=== PATIENT | female | born 1955 | race Caucasian/White ===

== ENCOUNTER 2018-01-14 17:57 | Emergency (ER) | payer SELFPAY ==
[~2018-01-14] VITALS: Ht 162.6 cm; Wt 90.7 kg
[2018-01-14] MEDS ORDERED: MORPHINE SULFATE 2 MG/ML SYR IV STA (18:42)
[2018-01-14] MEDS ORDERED: SODIUM CHLORIDE 0.9% 500ML 500 ML IV STA (18:42)
[2018-01-14] MEDS ORDERED: ONDANSETRON HCL INJ 2 MG/ML VIAL IV STA (18:42)
[2018-01-14 18:51] LABS: BASOPHILS # (AUTO) 0.1 (0.0-0.1); BASOPHILS % 0.6 % (0.0-1.0); EOSINOPHILS # (AUTO) 0.2 (0.0-0.4); EOSINOPHILS % 1.8 % (0.0-6.0); HEMATOCRIT 39.7 % (34.2-44.1); HEMOGLOBIN 13.3 g/dL (12.0-16.0); LYMPHOCYTES # (AUTO) 2.9 (1.0-3.2); LYMPHOCYTES % 26.8 % (18.0-39.1); MEAN CORPUSCULAR HEMOGLOBIN 27.8 pg (28-32); MEAN CORPUSCULAR HGB CONC 33.5 g/dL (31-35); MEAN CORPUSCULAR VOLUME 82.9 fL (81-99); MONOCYTES # (AUTO) 0.7 (0.2-0.8); MONOCYTES % 6.2 % (4.4-11.3); NEUTROPHILS % 64.2 % (38.7-80.0); PLATELET COUNT 461 x10e3/uL (140-360); RED BLOOD COUNT 4.79 x10e6/uL (3.6-5.1); RED CELL DISTRIBUTION WIDTH 14.7 % (11.7-14.4)
[2018-01-14 18:56] LABS: INR 1.01; PROTHROMBIN TIME 12.5 seconds (11.9-14.5)
[2018-01-14] MEDS ORDERED: DIATRIZOATE MEGL/DIATRIZOA SOD 30 ML BTL PO ONE (18:57)
[2018-01-14 19:03] LABS: ALANINE AMINOTRANSFERASE 6 IU/L (0-55); ALBUMIN 3.1 g/dL (3.5-5.0); ALBUMIN/GLOBULIN RATIO 0.7 (0.8-2.0); ALKALINE PHOSPHATASE 104 IU/L (40-150); AMYLASE 32 U/L (25-125); ANION GAP 14.7 mmol/L (8-16); BLOOD UREA NITROGEN 11 mg/dL (7-26); BUN/CREATININE RATIO 16 (6-25); CALCIUM 9.1 mg/dL (8.4-10.2); CARBON DIOXIDE 27 mmol/L (22-29); CHLORIDE 104 mmol/L (98-107); CREATINE KINASE 22 IU/L (29-168); EST GLOMERULAR FILTRATION RATE > 60 ML/MIN (60-); GLUCOSE 110 mg/dL (74-118); LIPASE 19 U/L (8-78); POTASSIUM 3.7 mmol/L (3.5-5.1); SODIUM 142 mmol/L (136-145)
[2018-01-14 19:27] LABS: BILIRUBIN,URINE NEGATIVE (NEGATIVE); CLARITY,URINE HAZY (CLEAR); COLOR,URINE YELLOW (YELLOW); KETONES,URINE NEGATIVE (NEGATIVE); LEUKOCYTE ESTERASE ,URINE TRACE (NEGATIVE); NITRITE,URINE NEGATIVE (NEGATIVE); PROTEIN,URINE DIPSTICK NEGATIVE (NEGATIVE); URINE UROBILINOGEN 1 mg/dL (0.2 - 1)
[2018-01-14 19:41] LABS: BACTERIA,URINE MANY /HPF; EPITHELIAL CELLS,URINE MODERATE /LPF; RBC,URINE 21-50 /HPF (0-5); WBC,URINE (MAN) 0-5 /HPF (0-5)
--- NOTE | 2018-01-14 20:33 | Diagnostic Imaging Report ---
EXAMINATION: CT of the abdomen and pelvis without contrast. TECHNIQUE: Helical CT images of the abdomen and pelvis were performed from the lung bases to the lesser trochanters without intravenous contrast and the oral administration of Gastrografin. Coronal and sagittal reformatted images were obtained. COMPARISON: None. CLINICAL HISTORY:Left lower quadrant pain DISCUSSION: ABDOMEN/PELVIS: LOWER THORAX:Unremarkable. HEPATOBILIARY: No focal hepatic lesions. No intra-or extrahepatic biliary ductal dilation. Cholecystectomy. SPLEEN: No splenomegaly. PANCREAS: No focal masses or ductal dilatation. ADRENALS: No adrenal nodules. KIDNEYS/URETERS: No hydronephrosis or stones. A right renal 7.4 cm and 4 cm exophytic cysts. No solid mass lesions. PELVIC ORGANS/BLADDER: Hysterectomy. Bladder unremarkable. PERITONEUM/RETROPERITONEUM: No soft tissue abscess. LYMPH NODES: No intra-abdominal, retroperitoneal, pelvic or inguinal lymphadenopathy. VESSELS: Limited evaluation. Vascular calcifications. GI TRACT: Wall thickening with inflammatory change of the sigmoid colon with adjacent diverticulosis. BONES AND SOFT TISSUE: No bony destructive lesions. Anterior abdominal wall hernia with transverse defect 4.5 cm containing transverse colon. No inflammatory change. IMPRESSION: Sigmoid diverticulitis. No abscess. Anterior abdominal hernia containing colon. No obstruction or inflammatory change. Signed by: Dr. Jose Alberto Haynes M.D. on 01/14/2018 8:29 PM
[2018-01-14 21:27] VITALS: BP 149/84
== END 2018-01-14 21:30 | disposition home or self-care (01) ==
LOC: ER 17:57
DX: R10.32 Left lower quadrant pain (principal); R11.0 Nausea; K57.32 Diverticulitis of large intestine without perforation or abscess without bleeding; D47.3 Essential (hemorrhagic) thrombocythemia
CPT/HCPCS: 36415; 74176; 80053; 81001; 82150; 82550; 82553; 83690; 84484; 85025; 85610; 85730; 93005; 99284; J2270; J2405; J7040

== ENCOUNTER 2018-01-18 08:33 | Emergency (ER) | payer SELFPAY ==
[~2018-01-18] VITALS: Ht 162.6 cm; Wt 90.7 kg
--- OUTSIDE RECORDS SUMMARY | 2018-01-18 08:35 | XMS REPORT ---
Author [facility] Address Unknown Phone Unavailable Care Team Providers Care Cashier Or Checker Stock Clerk Name Role Phone BLAS MCNEAL Unavailable Unavailable Problems This patient has no known problems. Allergies, Adverse Reactions, Alerts This patient has no known allergies or adverse reactions. Medications This patient has no known medications. Results Test Description Test Time Test Comments Text Results Atomic Results Result Comments CT ABDOMEN/PELVIS WO [place] [address] Patient Name: MICHAEL KATZ MR #: [id number] : 1955 Age/Sex: 63/F Req # : [id number] Adm Physician: Ordered by: LOY PURVIS LINE MECHANIC Report #: [id number] Location: ER Room/Bed: Procedure: [id number] CT/CT ABDOMEN/PELVIS WO Exam Date: Exam Time: REPORT STATUS: Signed EXAMINATION: CT of the abdomen and pelvis without contrast. TECHNIQUE: Helical CT images of the abdomen and pelvis were performed from the lung bases to the lesser trochanters without intravenous contrast and the oral administration of Gastrografin. Coronal and sagittal reformatted images were obtained. COMPARISON: None. CLINICAL HISTORY:Left lower quadrant pain DISCUSSION: ABDOMEN/ PELVIS: LOWER THORAX:Unremarkable. HEPATOBILIARY: No focal hepatic lesions. No intra-or extrahepatic biliary ductal dilation. Cholecystectomy. SPLEEN: No splenomegaly. PANCREAS: No focal masses or ductal dilatation. ADRENALS: No adrenal nodules. KIDNEYS/URETERS: No hydronephrosis or stones. A right renal 7.4 cm and 4 cm exophytic cysts. No solid mass lesions. PELVIC ORGANS/BLADDER: Hysterectomy. Bladder unremarkable. PERITONEUM/RETROPERITONEUM: No soft tissue abscess. LYMPH NODES: No intra-abdominal, retroperitoneal, pelvic or inguinal lymphadenopathy. VESSELS: Limited evaluation. Vascular calcifications. GI TRACT: Wall thickening with inflammatory change of the sigmoid colon with adjacent diverticulosis. BONES AND SOFT TISSUE: No bony destructive lesions. Anterior abdominal wall hernia with transverse defect 4.5 cm containing transverse colon. No inflammatory change. IMPRESSION: Sigmoid diverticulitis. No abscess. Anterior abdominal hernia containing colon. No obstruction or inflammatory change. Signed by: Dr. Kenneth Briceno M.D. on 01/14/2018 8:29 PM Dictated By: KENNETH BRICENO MD 28 Transcribed By: ELMO on 01/14/182028 COPY TO: LOY PURVIS NP
--- OUTSIDE RECORDS SUMMARY | 2018-01-18 08:35 | XMS REPORT | Continuity of Care Document ---
Author Author [facility] Organization [facility] Address [address] [place] [address] Phone Unavailable Care Team Providers Care Glazing Superintendent Name Role Phone NO, PCP PCP Unavailable Advance Directives Directive Response Recorded Date/Time Does the patient have an advance directive? No 01/14/18 6:56pm If yes, is advance directive on file with [facility]? No 01/14/18 6:56pm If not on file with [facility] will patient provide a copy? No 01/14/18 6:56pm Do you have a Directive to Physician? No 01/14/18 6:56pm Do you have a Medical Power of Electric Motor Tester Assembler? No 01/14/18 6:56pm Do you have an out of hospital Do Not Resuscitate Order? No 01/14/18 6:56pm Do you have any special needs we should be aware of? No 01/14/18 6:56pm Do you have a support person here with you today? Yes 01/14/18 6:56pm Did patient receive Notice of Privacy Practices? Yes 01/14/18 6:56pm Did patient receive patient rights and responsibilities? Yes 01/14/18 6:56pm Problems No problem information available. Medications No medication information available. Social History Smoking Status Start Date Stop Date Current every day smoker Hospital Discharge Instructions No hospital discharge instruction information available. Plan of Care Discharge Date 01/14/18 9:30pm Disposition HOME, SELF-CARE Condition at Discharge Stable Instructions/Education Provided Abdominal Pain - Adult Diverticulitis Forms Provided Work/School Excuse Prescriptions See Medication Section Referrals MAURICIO CHAMBERS MD Order Date: Call for an appointment Address: [address] [place], [place] [address], [place] [address] Additional Instructions/Education DC Instructions: Call for follow up appointment to see your medical provider or the referral listed. Take the medication as prescribed. Take Motrin 400mg to 600mg every 4-6 hours as needed for pain. As discussed at the bedside, drink fluids, rest and return to the ER for any fever, shortness of breath, chest pain, trouble handling your oral secreations, increased abdominal pain, fever, vomiting or any new concerns. Functional Status No functional status information available. Allergies, Adverse Reactions, Alerts Allergen Type Severity Reaction Status Last Updated Penicillin Allergy Unknown Active 01/14/18 Iodine Allergy Unknown Active 01/14/18 Diazepam Allergy Unknown Active 01/14/18 Aspirin Allergy Unknown Active 01/14/18 Tetracycline Allergy Unknown Active 01/14/18 ERYTHROMYCIN Allergy Unknown Active 01/14/18 Immunizations No immunization information available. Vital Signs Acute Vital Signs Vital Response Date/Time Pulse Pulse Rate (adult) 90 bpm (60 - 90) 01/14/2018 9:27pm Respiratory Rate 18 bpm (12 - 24) 01/14/2018 9:27pm Blood Pressure 149/84 mm Hg 01/14/2018 9:27pm Height 5 ft 4 in 01/14/2018 6:01pm Weight 200 lb 01/14/2018 6:01pm Body Mass Index 34.3 kg/m^2 01/14/2018 6:01pm Results Laboratory Results Test Name Result Units Flags Reference Collection Date/Time Result Date/ Time Comments White Blood Count 10.84 x10e3/uL H 4.8-10.8 01/14/2018 6:10pm 2017 6:54pm Red Blood Count 4.79 x10e6/uL 3.6-5.1 01/14/2018 6:10pm 01/14/2018 6: 54pm Hemoglobin 13.3 g/dL 12.0-16.0 01/14/2018 6:10pm 01/14/2018 6:54pm Hematocrit 39.7 % 34.2-44.1 01/14/2018 6:10pm 01/14/2018 6:54pm Mean Corpuscular Volume 82.9 fL 81-99 01/14/2018 6:10pm 01/14/2018 6: 54pm Mean Corpuscular Hemoglobin 27.8 pg L 28-32 01/14/2018 6:10pm 2017 6:54pm Mean Corpuscular Hemoglobin Concent 33.5 g/dL 31-35 01/14/2018 6:10pm 01/14/2018 6:54pm Red Cell Distribution Width 14.7 % H 11.7-14.4 01/14/2018 6:10pm 2017 6:54pm Platelet Count 461 x10e3/uL H 140-360 01/14/2018 6:10pm 01/14/2018 6: 54pm Neutrophils (%) (Auto) 64.2 % 38.7-80.0 01/14/2018 6:10pm 01/14/2018 6: 54pm Lymphocytes (%) (Auto) 26.8 % 18.0-39.1 01/14/2018 6:10pm 01/14/2018 6: 54pm Monocytes (%) (Auto) 6.2 % 4.4-11.3 01/14/2018 6:10pm 01/14/2018 6: 54pm Eosinophils (%) (Auto) 1.8 % 0.0-6.0 01/14/2018 6:10pm 01/14/2018 6: 54pm Basophils (%) (Auto) 0.6 % 0.0-1.0 01/14/2018 6:10pm 01/14/2018 6:54pm IM GRANULOCYTES % 0.4 % 0.0-1.0 01/14/2018 6:10pm 01/14/2018 6:54pm Neutrophils # (Auto) 7.0 H 2.1-6.9 01/14/2018 6:10pm 01/14/2018 6: 54pm Lymphocytes # (Auto) 2.9 1.0-3.2 01/14/2018 6:10pm 01/14/2018 6:54pm Monocytes # (Auto) 0.7 0.2-0.8 01/14/2018 6:10pm 01/14/2018 6:54pm Eosinophils # (Auto) 0.2 0.0-0.4 01/14/2018 6:10pm 01/14/2018 6:54pm Basophils # (Auto) 0.1 0.0-0.1 01/14/2018 6:10pm 01/14/2018 6:54pm Absolute Immature Granulocyte (auto 0.04 x10e3/uL 0-0.1 01/14/2018 6: 10pm 01/14/2018 6:54pm Prothrombin Time 12.5 seconds 11.9-14.5 01/14/2018 6:10pm 01/14/2018 7: 00pm Prothromb Time International Ratio 1.01 01/14/2018 6:10pm 2017 7:00pm Oral Anticoagulant Therapy INR Values: 1. Low Intensity Therapy 1.5 - 2.0 2. Moderate Intensity Therapy 2.0 - 3.0 3. High Intensity Therapy(1) 2.5 - 3.5 4. High Intensity Therapy(2) 3.0 - 4.0 5. Panic Value INR > 5.0 Activated Partial Thromboplast Time 35.0 seconds 23.8-35.5 01/14/2018 6: 10pm 01/14/2018 7:00pm Urine Color YELLOW YELLOW 01/14/2018 6:50pm 01/14/2018 7:29pm Urine Clarity HAZY CLEAR 01/14/2018 6:50pm 01/14/2018 7:29pm Urine Specific [place] 1.015 1.010-1.025 01/14/2018 6:50pm 2017 7:29pm Urine pH 6 5 - 7 01/14/2018 6:50pm 01/14/2018 7:29pm Urine Leukocyte Esterase TRACE H NEGATIVE 01/14/2018 6:50pm 2017 7:29pm Urine Nitrite NEGATIVE NEGATIVE 01/14/2018 6:50pm 01/14/2018 7:29pm Urine Protein NEGATIVE NEGATIVE 01/14/2018 6:50pm 01/14/2018 7:29pm Urine Glucose (UA) NEGATIVE NEGATIVE 01/14/2018 6:50pm 01/14/2018 7: 29pm Urine Ketones NEGATIVE NEGATIVE 01/14/2018 6:50pm 01/14/2018 7:29pm Urine Urobilinogen 1 mg/dL 0.2 - 1 01/14/2018 6:50pm 01/14/2018 7:29pm Urine Bilirubin NEGATIVE NEGATIVE 01/14/2018 6:50pm 01/14/2018 7: 29pm Urine Blood 1+ H NEGATIVE 01/14/2018 6:50pm 01/14/2018 7:29pm Urine WBC 0-5 /HPF 0-5 01/14/2018 6:50pm 01/14/2018 7:41pm Urine RBC 21-50 /HPF H 0-5 01/14/2018 6:50pm 01/14/2018 7:41pm Urine Bacteria MANY /HPF H NONE 01/14/2018 6:50pm 01/14/2018 7:41pm Urine Epithelial Cells MODERATE /LPF NONE 01/14/2018 6:50pm 01/14/2018 7:41pm Sodium Level 142 mmol/L 136-145 01/14/2018 6:10pm 01/14/2018 7:05pm Potassium Level 3.7 mmol/L 3.5-5.1 01/14/2018 6:10pm 01/14/2018 7:05pm Chloride Level 104 mmol/L 98-107 01/14/2018 6:10pm 01/14/2018 7:05pm Carbon Dioxide Level 27 mmol/L 22-29 01/14/2018 6:10pm 01/14/2018 7: 05pm Anion Gap 14.7 mmol/L 8-16 01/14/2018 6:10pm 01/14/2018 7:05pm Blood Urea Nitrogen 11 mg/dL 7-26 01/14/2018 6:10pm 01/14/2018 7:05pm Creatinine 0.70 mg/dL 0.57-1.11 01/14/2018 6:10pm 01/14/2018 7:05pm BUN/Creatinine Ratio 16 6-25 01/14/2018 6:10pm 01/14/2018 7:05pm Estimat Glomerular Filtration Rate > 60 ML/MIN 60- 01/14/2018 6:10pm 7:05pm Ranges were taken from the National Kidney Disease Education Program and the National Kidney Foundation literature. Reference ranges: 60 or greater: Normal 16-59 (for 3 consecutive months): Chronic kidney disease 15 or less: Kidney failure Glucose Level 110 mg/dL 74-118 01/14/2018 6:10pm 01/14/2018 7:05pm Calcium Level 9.1 mg/dL 8.4-10.2 01/14/2018 6:10pm 01/14/2018 7:05pm Total Bilirubin 0.3 mg/dL 0.2-1.2 01/14/2018 6:10pm 01/14/2018 7:05pm Aspartate Amino Transf (AST/SGOT) 8 IU/L 5-34 01/14/2018 6:10pm 2017 7:05pm Alanine Aminotransferase (ALT/SGPT) 6 IU/L 0-55 01/14/2018 6:10pm 01/14 7:05pm Total Protein 7.8 g/dL 6.5-8.1 01/14/2018 6:10pm 01/14/2018 7:05pm Albumin 3.1 g/dL L 3.5-5.0 01/14/2018 6:10pm 01/14/2018 7:05pm Globulin 4.7 g/dL H 2.3-3.5 01/14/2018 6:10pm 01/14/2018 7:05pm Albumin/Globulin Ratio 0.7 L 0.8-2.0 01/14/2018 6:10pm 01/14/2018 7: 05pm Alkaline Phosphatase 104 IU/L 40-150 01/14/2018 6:10pm 01/14/2018 7: 05pm Creatine Kinase 22 IU/L L 29-168 01/14/2018 6:10pm 01/14/2018 7:05pm Creatine Kinase MB 0.40 ng/mL 0-5.0 01/14/2018 6:10pm 01/14/2018 7: 10pm Troponin I 0.009 ng/mL 0-0.300 01/14/2018 6:10pm 01/14/2018 7:10pm Amylase Level 32 U/L 25-125 01/14/2018 6:10pm 01/14/2018 7:05pm Lipase 19 U/L 8-78 01/14/2018 6:10pm 01/14/2018 7:05pm Procedures Procedure Status Date Provider(s) CT of abdomen and pelvis without contrast Active 01/14/18 LOY PURVIS AMUSEMENT MACHINE MECHANIC Encounters Encounter Location Arrival/Admit Date Discharge/Depart Date Attending Provider Departed Emergency Room [facility] 01/14/18 5:57pm 9:30pm BLAS MCNEAL MD
[2018-01-18 09:32] LABS: BASOPHILS # (AUTO) 0.1 (0.0-0.1); BASOPHILS % 0.5 % (0.0-1.0); EOSINOPHILS # (AUTO) 0.3 (0.0-0.4); EOSINOPHILS % 2.4 % (0.0-6.0); HEMATOCRIT 36.9 % (34.2-44.1); LYMPHOCYTES # (AUTO) 2.7 (1.0-3.2); LYMPHOCYTES % 24.3 % (18.0-39.1); MEAN CORPUSCULAR HEMOGLOBIN 27.2 pg (28-32); MEAN CORPUSCULAR HGB CONC 32.5 g/dL (31-35); MEAN CORPUSCULAR VOLUME 83.7 fL (81-99); MONOCYTES # (AUTO) 0.9 (0.2-0.8); MONOCYTES % 7.9 % (4.4-11.3); NEUTROPHILS # (AUTO) 7.1 (2.1-6.9); NEUTROPHILS % 64.5 % (38.7-80.0); PLATELET COUNT 483 x10e3/uL (140-360); RED BLOOD COUNT 4.41 x10e6/uL (3.6-5.1); RED CELL DISTRIBUTION WIDTH 15.1 % (11.7-14.4)
[2018-01-18 09:38] LABS: BILIRUBIN,URINE NEGATIVE (NEGATIVE); CLARITY,URINE CLEAR (CLEAR); COLOR,URINE YELLOW (YELLOW); KETONES,URINE NEGATIVE (NEGATIVE); LEUKOCYTE ESTERASE ,URINE TRACE (NEGATIVE); NITRITE,URINE NEGATIVE (NEGATIVE); PROTEIN,URINE DIPSTICK NEGATIVE (NEGATIVE); URINE UROBILINOGEN 0.2 mg/dL (0.2 - 1)
[2018-01-18 09:48] LABS: ALANINE AMINOTRANSFERASE 6 IU/L (0-55); ALBUMIN 3.1 g/dL (3.5-5.0); ALBUMIN/GLOBULIN RATIO 0.8 (0.8-2.0); ALKALINE PHOSPHATASE 91 IU/L (40-150); BLOOD UREA NITROGEN 8 mg/dL (7-26); BUN/CREATININE RATIO 10 (6-25); CALCIUM 8.5 mg/dL (8.4-10.2); CARBON DIOXIDE 26 mmol/L (22-29); CHLORIDE 104 mmol/L (98-107); CREATININE, SERUM 0.78 mg/dL (0.57-1.11); EST GLOMERULAR FILTRATION RATE > 60 ML/MIN (60-); GLUCOSE 103 mg/dL (74-118); SODIUM 141 mmol/L (136-145)
[2018-01-18 09:54] LABS: BACTERIA,URINE FEW /HPF; EPITHELIAL CELLS,URINE FEW /LPF; RBC,URINE 0-5 /HPF (0-5); WBC,URINE (MAN) 0-5 /HPF (0-5)
[2018-01-18] MEDS ORDERED: LEVOFLOXACIN 750MG/D5W 150ML 150 ML IV STA (09:57)
[2018-01-18] MEDS ORDERED: SODIUM CHLORIDE 0.9% 1000ML 1,000 ML IV STA (09:57)
[2018-01-18] MEDS ORDERED: METRONIDAZOLE 500MG/NS 100ML 100 ML IV STA (09:57)
[2018-01-18] MEDS ORDERED: ONDANSETRON HCL INJ 2 MG/ML VIAL IV ONE ×2 (10:19→11:00)
[2018-01-18] MEDS ORDERED: HYDROMORPHONE 1MG/1ML INJ IV STA (10:19)
[2018-01-18] MEDS ORDERED: DIATRIZOATE MEGL/DIATRIZOA SOD 30 ML BTL PO ONE (10:34)
[2018-01-18] MEDS ORDERED: POTASSIUM CHLORIDE 20 MEQ TAB CR PO STA (10:40)
[2018-01-18] MEDS ORDERED: DIPHENHYDRAMINE HCL INJ 50 MG/ML VIAL IV ONE (10:45)
[2018-01-18] MEDS ORDERED: METHYLPREDNISOLONE SOD SUCC 125 MG/2ML VIAL IV ONE (10:45)
--- NOTE | 2018-01-18 12:15 | Diagnostic Imaging Report ---
EXAM: CT Abdomen and Pelvis WITHOUT contrast INDICATION: Recent diverticulitis. Concern for perforation. COMPARISON: 01/14/2018. TECHNIQUE: Abdomen and pelvis were scanned utilizing a multidetector helical scanner from the lung base to the pubic symphysis without administration of IV contrast. Absence of intravenous contrast decreases sensitivity for detection of focal lesions and vascular pathology. Coronal and sagittal reformations were obtained. Routine protocol was performed. IV CONTRAST: None. Withheld due to history of iodine allergy. ORAL CONTRAST: Gastrografin water mixture. RADIATION DOSE: Total DLP: 742.46 mGy*cm Estimated effective dose: (DLP x 0.015 x size factor) mSv COMPLICATIONS: None FINDINGS: LINES and TUBES: None. LOWER THORAX: Bibasilar dependent atelectasis. HEPATOBILIARY: No focal hepatic lesions. No biliary ductal dilation. GALLBLADDER: Surgically absent. SPLEEN: No splenomegaly. PANCREAS: No focal masses or ductal dilatation. ADRENALS: No adrenal nodules KIDNEYS/URETERS: No hydronephrosis. 7.6 cm cyst exophytic of the lateral interpolar region of the right kidney. 3.7 cm cyst exophytic of the posterior upper pole although although right kidney. No stones. GI TRACT: No bowel dilatation to suggest obstruction. Predominantly sigmoid diverticulosis. Redemonstration of sigmoid diverticulitis (about a large sigmoid diverticulum or focally dilated segment of sigmoid colon) which is not significantly changed compared to the prior examination. No abscess formation. PELVIC ORGANS/BLADDER: Status post hysterectomy. LYMPH NODES: No lymphadenopathy. VESSELS: Atherosclerotic calcifications of the abdominal aorta. 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 PERITONEUM / RETROPERITONEUM: No free air or fluid. BONES: Unremarkable. SOFT TISSUES: Large ventral abdominal hernia with an aperture of approximately 5.5 cm. Hernia sac contains a moderate volume of mesenteric fat, nondilated segments of transverse colon. IMPRESSION: 1. Redemonstration of acute sigmoid diverticulitis without evidence of perforation or abscess formation as per clinical query. 2. Large ventral abdominal hernia. No bowel obstruction. Signed by: Dr. Rayne Wilson M.D. on 01/18/2018 12:11 PM
== END 2018-01-18 13:12 | disposition home or self-care (01) ==
LOC: ER 08:33
DX: R10.31 Right lower quadrant pain (principal); K57.32 Diverticulitis of large intestine without perforation or abscess without bleeding; E87.6 Hypokalemia
CPT/HCPCS: 36415; 74176; 80053; 81001; 85025; 99284; J1170; J1200; J2405; J2930; J7030

== ENCOUNTER 2018-01-21 09:50 | Emergency (ER) ==
[~2018-01-21] VITALS: Ht 162.6 cm; Wt 90.7 kg
--- OUTSIDE RECORDS SUMMARY | 2018-01-21 09:53 | XMS REPORT | Continuity of Care Document ---
Author Author [facility] Organization [facility] Address [address] [place] [address] Phone Unavailable Care Team Providers Care Contracts Attorney Name Role Phone NO, PCP PCP Unavailable Advance Directives Directive Response Recorded Date/Time Does the patient have an advance directive? No 01/14/18 6:56pm If yes, is advance directive on file with [facility]? No 01/14/18 6:56pm If not on file with [facility] will patient provide a copy? No 01/14/18 6:56pm Do you have a Directive to Physician? No 01/18/18 10:13am Do you have a Medical Power of Painter Supervisor? No 01/18/18 10:13am Do you have an out of hospital Do Not Resuscitate Order? No 01/18/18 10:13am Do you have any special needs we should be aware of? No 01/18/18 10:13am Do you have a support person here with you today? Yes 01/18/18 10:13am Did patient receive Notice of Privacy Practices? Yes 01/18/18 10:13am Did patient receive patient rights and responsibilities? Yes 01/18/18 10:13am Problems No problem information available. Medications No medication information available. Social History Smoking Status Start Date Stop Date Current every day smoker Hospital Discharge Instructions No hospital discharge instruction information available. Plan of Care Discharge Date 01/18/18 1:12pm Disposition HOME, SELF-CARE Condition at Discharge Stable Instructions/Education Provided Abdominal Pain - Adult Forms Provided Work/School Excuse Prescriptions See Medication Section Additional Instructions/Education follow up with pcp take meds as directed Functional Status No functional status information available. [...] 01/14/2018 9:27pm Height 5 ft 4 in 01/18/2018 8:43am Weight 200 lb 01/18/2018 8:43am Body Mass Index 34.3 kg/m^2 01/18/2018 8:43am Results Laboratory Results Test Name Result Units Flags Reference Collection Date/Time Result Date/ Time Comments Prothrombin Time 12.5 seconds 11.9-14.5 01/14/2018 6:10pm [...] seconds 23.8-35.5 01/14/2018 6: 10pm 01/14/2018 7:00pm Creatine Kinase 22 IU/L L 29-168 01/14/2018 6:10pm 01/14/2018 7:05pm Creatine Kinase MB 0.40 ng/mL 0-5.0 01/14/2018 6:10pm 01/14/2018 7: 10pm Troponin I 0.009 ng/mL 0-0.300 01/14/2018 6:10pm 01/14/2018 7:10pm Amylase Level 32 U/L 25-125 01/14/2018 6:10pm 01/14/2018 7:05pm Lipase 19 U/L 8-78 01/14/2018 6:10pm 01/14/2018 7:05pm White Blood Count 10.95 x10e3/uL H 4.8-10.8 01/18/2018 8:47am 2017 9:38am Red Blood Count 4.41 x10e6/uL 3.6-5.1 01/18/2018 8:47am 01/18/2018 9: 38am Hemoglobin 12.0 g/dL 12.0-16.0 01/18/2018 8:47am 01/18/2018 9:38am Hematocrit 36.9 % 34.2-44.1 01/18/2018 8:47am 01/18/2018 9:38am Mean Corpuscular Volume 83.7 fL 81-99 01/18/2018 8:47am 01/18/2018 9: 38am Mean Corpuscular Hemoglobin 27.2 pg L 28-32 01/18/2018 8:47am 2017 9:38am Mean Corpuscular Hemoglobin Concent 32.5 g/dL 31-35 01/18/2018 8:47am 01/18/2018 9:38am Red Cell Distribution Width 15.1 % H 11.7-14.4 01/18/2018 8:47am 2017 9:38am Platelet Count 483 x10e3/uL H 140-360 01/18/2018 8:47am 01/18/2018 9: 38am Neutrophils (%) (Auto) 64.5 % 38.7-80.0 01/18/2018 8:47am 01/18/2018 9: 38am Lymphocytes (%) (Auto) 24.3 % 18.0-39.1 01/18/2018 8:47am 01/18/2018 9: 38am Monocytes (%) (Auto) 7.9 % 4.4-11.3 01/18/2018 8:47am 01/18/2018 9: 38am Eosinophils (%) (Auto) 2.4 % 0.0-6.0 01/18/2018 8:47am 01/18/2018 9: 38am Basophils (%) (Auto) 0.5 % 0.0-1.0 01/18/2018 8:47am 01/18/2018 9:38am IM GRANULOCYTES % 0.4 % 0.0-1.0 01/18/2018 8:47am 01/18/2018 9:38am Neutrophils # (Auto) 7.1 H 2.1-6.9 01/18/2018 8:47am 01/18/2018 9: 38am Lymphocytes # (Auto) 2.7 1.0-3.2 01/18/2018 8:47am 01/18/2018 9:38am Monocytes # (Auto) 0.9 H 0.2-0.8 01/18/2018 8:47am 01/18/2018 9:38am Eosinophils # (Auto) 0.3 0.0-0.4 01/18/2018 8:47am 01/18/2018 9:38am Basophils # (Auto) 0.1 0.0-0.1 01/18/2018 8:47am 01/18/2018 9:38am Absolute Immature Granulocyte (auto 0.04 x10e3/uL 0-0.1 01/18/2018 8: 47am 01/18/2018 9:38am Urine Color YELLOW YELLOW 01/18/2018 8:47am 01/18/2018 9:40am Urine Clarity CLEAR CLEAR 01/18/2018 8:47am 01/18/2018 9:40am Urine Specific [place] 1.010 1.010-1.025 01/18/2018 8:47am 2017 9:40am Urine pH 6 5 - 7 01/18/2018 8:47am 01/18/2018 9:40am Urine Leukocyte Esterase TRACE H NEGATIVE 01/18/2018 8:47am 2017 9:40am Urine Nitrite NEGATIVE NEGATIVE 01/18/2018 8:47am 01/18/2018 9:40am Urine Protein NEGATIVE NEGATIVE 01/18/2018 8:47am 01/18/2018 9:40am Urine Glucose (UA) NEGATIVE NEGATIVE 01/18/2018 8:47am 01/18/2018 9: 40am Urine Ketones NEGATIVE NEGATIVE 01/18/2018 8:47am 01/18/2018 9:40am Urine Urobilinogen 0.2 mg/dL 0.2 - 1 01/18/2018 8:47am 01/18/2018 9: 40am Urine Bilirubin NEGATIVE NEGATIVE 01/18/2018 8:47am 01/18/2018 9: 40am Urine Blood 1+ H NEGATIVE 01/18/2018 8:47am 01/18/2018 9:40am Urine WBC 0-5 /HPF 0-5 01/18/2018 8:47am 01/18/2018 9:54am Urine RBC 0-5 /HPF 0-5 01/18/2018 8:47am 01/18/2018 9:54am Urine Bacteria FEW /HPF NONE 01/18/2018 8:47am 01/18/2018 9:54am Urine Epithelial Cells FEW /LPF NONE 01/18/2018 8:47am 01/18/2018 9: 54am Sodium Level 141 mmol/L 136-145 01/18/2018 8:47am 01/18/2018 9:52am Potassium Level 3.0 mmol/L L 3.5-5.1 01/18/2018 8:47am 01/18/2018 9: 52am Chloride Level 104 mmol/L 98-107 01/18/2018 8:47am 01/18/2018 9:52am Carbon Dioxide Level 26 mmol/L 22-29 01/18/2018 8:47am 01/18/2018 9: 52am Anion Gap 14.0 mmol/L 8-16 01/18/2018 8:47am 01/18/2018 9:52am Blood Urea Nitrogen 8 mg/dL 7-26 01/18/2018 8:47am 01/18/2018 9:52am Creatinine 0.78 mg/dL 0.57-1.11 01/18/2018 8:47am 01/18/2018 9:52am BUN/Creatinine Ratio 10 6-25 01/18/2018 8:47am 01/18/2018 9:52am Estimat Glomerular Filtration Rate > 60 ML/MIN 60- 01/18/2018 8:47am 9:52am Ranges were taken from the National Kidney Disease Education Program and the National Kidney Foundation literature. Reference ranges: 60 or greater: Normal 16-59 (for 3 consecutive months): Chronic kidney disease 15 or less: Kidney failure Glucose Level 103 mg/dL 74-118 01/18/2018 8:47am 01/18/2018 9:52am Calcium Level 8.5 mg/dL 8.4-10.2 01/18/2018 8:47am 01/18/2018 9:52am Total Bilirubin < 0.3 mg/dL 0.2-1.2 01/18/2018 8:47am 01/18/2018 9: 52am Aspartate Amino Transf (AST/SGOT) 9 IU/L 5-34 01/18/2018 8:47am 2017 9:52am Alanine Aminotransferase (ALT/SGPT) 6 IU/L 0-55 01/18/2018 8:47am 01/18 9:52am Total Protein 7.2 g/dL 6.5-8.1 01/18/2018 8:47am 01/18/2018 9:52am Albumin 3.1 g/dL L 3.5-5.0 01/18/2018 8:47am 01/18/2018 9:52am Globulin 4.1 g/dL H 2.3-3.5 01/18/2018 8:47am 01/18/2018 9:52am Albumin/Globulin Ratio 0.8 0.8-2.0 01/18/2018 8:47am 01/18/2018 9: 52am Alkaline Phosphatase 91 IU/L 40-150 01/18/2018 8:47am 01/18/2018 9: 52am Procedures Procedure Status Date Provider(s) CT of abdomen and pelvis without contrast Active 01/14/18 LOY PURVIS BEAN PICKER MACHINE OPERATOR CT of abdomen and pelvis without contrast Active 01/18/18 BLAS MCNEAL MD Encounters Encounter Location Arrival/Admit Date Discharge/Depart Date Attending Provider Departed Emergency Room [facility] 01/18/18 8:33am 1:12pm BLAS MCNEAL MD Departed Emergency Room [facility] 01/14/18 5:57pm 9:30pm BLAS MCNEAL MD
== END 2018-01-21 10:13 | disposition short-term general hospital (02) ==
LOC: ER 09:50
DX: R10.31 Right lower quadrant pain (principal)

== ENCOUNTER 2018-01-21 22:18 | Inpatient (IN) | payer SELFPAY ==
[~2018-01-21] VITALS: Ht 160 cm; Wt 82.3 kg
--- OUTSIDE RECORDS SUMMARY | 2018-01-21 22:21 | XMS REPORT | Continuity of Care Document ---
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 No 01/14/18 6:56pm If yes, is advance directive on file with [facility]? No 01/14/18 6:56pm If not on file with [facility] will patient provide a copy? No 01/14/18 6:56pm Problems No problem information available. Medications No medication information available. Social History No social history information available. Hospital Discharge Instructions No hospital discharge instruction information available. Plan of Care Discharge Date 01/21/18 10:13am Disposition REQUEST WITHDRAWN FOR [facility] Condition at Discharge Stable Forms Provided Work/School Excuse Prescriptions See Medication Section Referrals NO,FAMILY Functional Status No functional status information available. Allergies, Adverse Reactions, Alerts Allergen Type Severity Reaction Status Last Updated Penicillin Allergy Unknown Active 01/14/18 Iodine Allergy Unknown Active 01/14/18 Diazepam Allergy Unknown Active 01/14/18 Aspirin Allergy Unknown Active 01/14/18 Tetracycline Allergy Unknown Active 01/14/18 CODIENE Allergy Unknown Active 01/21/18 ERYTHROMYCIN Allergy Unknown Active 01/14/18 Immunizations No immunization information available. Vital Signs Acute Vital Signs Vital Response Date/Time Pulse Pulse Rate (adult) 90 bpm (60 - 90) 01/14/2018 9:27pm Respiratory Rate 18 bpm (12 - 24) 01/14/2018 9:27pm Blood Pressure 149/84 mm Hg 01/14/2018 9:27pm Height 5 ft 4 in 01/21/2018 9:54am Weight 200 lb 01/21/2018 9:54am Body Mass Index 34.3 kg/m^2 01/21/2018 9:54am Results Laboratory Results Test Name Result Units [...] IM GRANULOCYTES % 0.4 % 0.0-1.0 01/18/2018 8:4701/18/2018 9:38am Neutrophils # (Auto) 7.1 H 2.1-6.9 [...] CLEAR 01/18/2018 8:47am 01/18/2018 9:40am Urine Specific [place] 1.010 1.010-1.025 01/18/2018 8:47am 2017 9:40am Urine [...] Potassium Level 3.0 mmol/L L 3.5-5.1 01/18/2018 8:4701/18/2018 9: 52am Chloride Level 104 mmol/L 98-107 01/18/2018 8:47am 01/18/2018 9:52am Carbon Dioxide Level 26 mmol/L 22-29 01/18/2018 8:47am 01/18/2018 9: 52am Anion Gap 14.0 mmol/L 8-16 01/18/2018 8:4701/18/2018 9:52am Blood Urea Nitrogen 8 mg/dL 7-01/18/2018 8:4701/18/2018 9:52am Creatinine 0.78 mg/dL 0.57-1.11 01/18/2018 8:4701/18/2018 9:52am BUN/Creatinine Ratio 10 6-01/18/2018 8:4701/18/2018 9:52am Estimat Glomerular Filtration Rate > 60 ML/MIN 60- 01/18/2018 8:47 9:52am Ranges were taken from the National Kidney Disease Education Program and the National Kid[employer] Foundation literature. Reference ranges: 60 or greater: Normal 16-59 (for 3 consecutive months): Chronic kidney disease 15 or less: Kidney failure Glucose Level 103 mg/dL 74-118 01/18/2018 8:4701/18/2018 9:52am Calcium Level 8.5 mg/dL 8.4-10.2 01/18/2018 8:4701/18/2018 9:52am Total Bilirubin < 0.3 mg/dL 0.2-1.2 01/18/2018 8:4701/18/2018 9: 52am Aspartate Amino Transf (AST/SGOT) 9 IU/L 5-34 01/18/2018 8:472017 9:52am Alanine Aminotransferase (ALT/SGPT) 6 IU/L 0-55 01/18/2018 8:4701/18 9:52am Total Protein 7.2 g/dL 6.5-8.1 01/18/2018 8:47am 01/18/2018 9:52am Albumin 3.1 g/dL L 3.5-5.0 01/18/2018 8:47am 01/18/2018 9:52am Globulin 4.1 g/dL H 2.3-3.5 01/18/2018 8:47am 01/18/2018 9:52am Albumin/Globulin Ratio 0.8 0.8-2.0 01/18/2018 8:47am 01/18/2018 9: 52am Alkaline Phosphatase 91 IU/L 40-150 01/18/2018 8:47am 01/18/2018 9: 52am Procedures Procedure Status Date Provider(s) CT of abdomen and pelvis without contrast Active 01/14/[address] of abdomen and pelvis without contrast Active 01/18/18 BLAS MCNEAL MD Encounters Encounter Location Arrival/Admit Date Discharge/Depart Date Attending Provider Departed Emergency Room [facility] [place] 01/21/18 9:50am 10:13am CONY SERNA MD Departed Emergency Room [facility] [place] 01/18/18 8:33am 1:12pm BLAS MCNEAL MD Departed Emergency Room [facility] [place] [facility] 01/14/18 5:57pm 9:30pm BLAS MCNEAL MD
[2018-01-21] MEDS ORDERED: PANTOPRAZOLE 40 MG 10ML VIAL IV STA (23:06)
[2018-01-21] MEDS ORDERED: ONDANSETRON HCL INJ 2 MG/ML VIAL IV STA (23:06)
[2018-01-21] MEDS ORDERED: SODIUM CHLORIDE 0.9% 1000ML 1,000 ML IV STA (23:06)
[2018-01-21 23:15] LABS: BASOPHILS # (AUTO) 0.1 (0.0-0.1); BASOPHILS % 0.6 % (0.0-1.0); EOSINOPHILS # (AUTO) 0.2 (0.0-0.4); EOSINOPHILS % 1.7 % (0.0-6.0); HEMATOCRIT 38.2 % (34.2-44.1); HEMOGLOBIN 12.6 g/dL (12.0-16.0); LYMPHOCYTES # (AUTO) 3.6 (1.0-3.2); LYMPHOCYTES % 24.7 % (18.0-39.1); MEAN CORPUSCULAR HEMOGLOBIN 27.3 pg (28-32); MEAN CORPUSCULAR VOLUME 82.9 fL (81-99); MONOCYTES % 6.9 % (4.4-11.3); NEUTROPHILS # (AUTO) 9.6 (2.1-6.9); NEUTROPHILS % 65.8 % (38.7-80.0); PLATELET COUNT 444 x10e3/uL (140-360); RED BLOOD COUNT 4.61 x10e6/uL (3.6-5.1); RED CELL DISTRIBUTION WIDTH 15.6 % (11.7-14.4)
[2018-01-21] MEDS ORDERED: DICYCLOMINE HCL 20 MG/2 ML VIAL IM ONE (23:15)
[2018-01-21 23:26] LABS: BLOOD UREA NITROGEN 15 mg/dL (7-26); BUN/CREATININE RATIO 20 (6-25); CARBON DIOXIDE 27 mmol/L (22-29); CHLORIDE 104 mmol/L (98-107); CREATININE, SERUM 0.75 mg/dL (0.57-1.11); EST GLOMERULAR FILTRATION RATE > 60 ML/MIN (60-); GLUCOSE 113 mg/dL (74-118); SODIUM 140 mmol/L (136-145)
[2018-01-22] VITALS (10 sets, daily range): BP systolic 105–163; BP diastolic 59–97
[2018-01-22] MEDS ORDERED: HYDROMORPHONE 1MG/1ML INJ IV STA (00:09)
[2018-01-22] MEDS ORDERED: PROMETHAZINE HCL (IM) 25 MG/ML VIAL IV PRN (00:30)
[2018-01-22] MEDS: CEFTRIAXONE SOD 1 GM VIAL IV SCH ×2 (00:39→12:35)
[2018-01-22] MEDS: METRONIDAZOLE 500MG/NS 100ML 100 ML IV SCH ×4 (00:39→17:51)
[2018-01-22] MEDS ORDERED: POTASSIUM CHLORIDE 20MEQ/15ML UDC PO STA (00:49)
[2018-01-22] MEDS ORDERED: PROMETHAZINE 12.5MG/ NACL 0.9% 50 ML ONE (00:58)
[2018-01-22] MEDS: D5.45%NS/KCL 20MEQ 1,000 ML IV SCH ×4 (03:25→23:05)
[2018-01-22] MEDS: HYDROMORPHONE 1MG/1ML INJ IV PRN ×5 (05:26→23:06)
[2018-01-22] MEDS ORDERED: HYDRALAZINE HCL 20 MG/ML VIAL IV PRN (08:45)
[2018-01-22] MEDS ORDERED: PANTOPRAZOLE 40 MG 10ML VIAL IV SCH (09:00)
[2018-01-22] MEDS: FAMOTIDINE 20 MG TAB PO SCH ×2 (09:11→16:15)
--- NOTE | 2018-01-22 19:52 | History and Physical ---
DATE OF : 1955 PCP: None. CHIEF COMPLAINT: Abdominal pain. HISTORY OF PRESENT ILLNESS: Ms. Huddleston is a 63-year-old lady, who comes in complaining of abdominal pain that has been going on for almost 6 months in the left lower quadrant initially. She has had some diarrhea. She has had some bright red blood per rectum in the last couple of days. The pain was finally severe enough that the patient went to the emergency room about a week ago. Here, CT scan showed acute sigmoid diverticulitis and a ventral hernia. She was started on Cipro and Flagyl, which she has been taking for the past week. She comes in now still with left lower quadrant abdominal pain, which has moved over to the right side as well and some discomfort in the lower back. She is also having some bright red blood per rectum in the last couple of days as well. REVIEW OF SYSTEMS: She denies fever, chills or weight loss. She denies sinus congestion or sore throat. She denies chest pain or palpitations. She denies shortness breath, wheezing. She does have a chronic cough. She is a smoker. She complains of abdominal pain as noted with some bright red blood per rectum, hematochezia. She denies nausea, vomiting or hematemesis. She denies dysuria or flank pain. She denies rash or pruritus. She denies joint pain or swelling. She denies headache, vertigo or loss of consciousness. She denies depression, agitation, homicidal or suicidal ideation. PAST MEDICAL HISTORY: Negative. The patient takes no chronic medication. Has not been to a doctor in years until just recently with this abdominal pain. She does have a distant history of cholecystectomy and hysterectomy. She takes no chronic medication. SHE HAS A STATED ALLERGY TO TETRACYCLINE, ASPIRIN, VALIUM, IODINE, PENICILLINS, CODEINE, ERYTHROMYCIN. FAMILY HISTORY: Also unremarkable, most of her family members of old age. SOCIAL HISTORY: The patient is . Citizen Of [place] is her primary language. She is a current every day smoker. She does not drink or use illegal drugs and she is generally independently functioning. PHYSICAL EXAM PSYCHIATRIC: She is alert and oriented times 3 with normal mood and affect. CONSTITUTIONAL: She has a normal body habitus, is in no acute distress. VITAL SIGNS: Blood pressure 139/83. Pulse 75 and regular. Respiratory rate 18. O2 sat 95% on room air. Temperature 98.3. HEENT: Head is atraumatic. Her eyes are anicteric with clear conjunctivae. Ears and nares are without erythema or discharge. Oropharynx is clear. NECK: Supple with no mass or thyromegaly. LYMPHATIC SYSTEM: She has no palpable cervical axillary or inguinal adenopathy. CARDIOVASCULAR: Her heart has a regular rate and rhythm without murmur or extra sounds. She has no carotid bruit. She has no peripheral edema. She has palpable dorsal pedal pulses. RESPIRATORY: Lungs reveal diminished breath sounds with some scattered rhonchi and expiratory wheezing. She has normal respiratory effort. GASTROINTESTINAL: Her abdomen is soft without organomegaly or masses. She has some moderate tenderness in the lower abdomen greater in the left lower quadrant, but also in the right lower quadrant without rebound or guarding. She has normal bowel sounds present. CUTANEOUS: Her skin is warm and dry to touch. No rash or skin breakdown. MUSCULOSKELETAL: Her joints are normal alignment without erythema or swelling. She has no calf tenderness. NEUROLOGIC: Exam is nonfocal with intact cranial nerves and no motor or sensory deficits. DIAGNOSTIC STUDIES: CT scan done a week ago showed acute sigmoid diverticulitis and a ventral hernia. It was actually done on January 18, 2018, so 4 or 5 days ago. Her chemistry shows a potassium of 3.0. The rest of her electrolytes are normal. CO2 is 27. Creatinine 0.75. BUN 15. Glucose 113. Calcium 8.0. Magnesium 1.6. Her CBC shows a white count of 14.5, which is slightly elevated, but has a normal differential. Hemoglobin 12.6, hematocrit 38.2, and platelet count 444,000. IMPRESSIONS AND PLAN 1. Acute sigmoid diverticulitis. The patient has been started on intravenous Rocephin and Flagyl since she was on Cipro before. We will continue her on clear liquids and will do serial abdominal exams. Will advance diet when the patient is pain free. 2. For prophylaxis, the patient will have sequential compression devices placed for deep venous thrombosis prophylaxis and Pepcid for gastrointestinal prophylaxis. Job#: [id number] CQ
[2018-01-23 00:16] VITALS: BP 141/65
[2018-01-23] MEDS: METRONIDAZOLE 500MG/NS 100ML 100 ML IV SCH ×4 (00:30→16:27)
[2018-01-23] MEDS: CEFTRIAXONE SOD 1 GM VIAL IV SCH ×2 (00:31→12:11)
[2018-01-23] MEDS: HYDROMORPHONE 1MG/1ML INJ IV PRN ×4 (03:54→21:14)
[2018-01-23 04:35] VITALS: BP 166/72
[2018-01-23 04:39] VITALS: BP 144/63
[2018-01-23 06:09] LABS: BASOPHILS # (AUTO) 0.1 (0.0-0.1); BASOPHILS % 0.7 % (0.0-1.0); EOSINOPHILS # (AUTO) 0.2 (0.0-0.4); EOSINOPHILS % 2.2 % (0.0-6.0); HEMATOCRIT 31.3 % (34.2-44.1); HEMOGLOBIN 10.1 g/dL (12.0-16.0); LYMPHOCYTES # (AUTO) 2.1 (1.0-3.2); LYMPHOCYTES % 23.7 % (18.0-39.1); MEAN CORPUSCULAR HEMOGLOBIN 27.2 pg (28-32); MEAN CORPUSCULAR HGB CONC 32.3 g/dL (31-35); MEAN CORPUSCULAR VOLUME 84.4 fL (81-99); MONOCYTES # (AUTO) 0.7 (0.2-0.8); MONOCYTES % 7.6 % (4.4-11.3); NEUTROPHILS # (AUTO) 5.9 (2.1-6.9); NEUTROPHILS % 65.5 % (38.7-80.0); PLATELET COUNT 340 x10e3/uL (140-360); RED BLOOD COUNT 3.71 x10e6/uL (3.6-5.1); RED CELL DISTRIBUTION WIDTH 16.2 % (11.7-14.4)
[2018-01-23 06:26] LABS: ANION GAP 6.6 mmol/L (8-16); BLOOD UREA NITROGEN 8 mg/dL (7-26); BUN/CREATININE RATIO 12 (6-25); CALCIUM 7.5 mg/dL (8.4-10.2); CARBON DIOXIDE 29 mmol/L (22-29); CHLORIDE 105 mmol/L (98-107); CREATININE, SERUM 0.66 mg/dL (0.57-1.11); EST GLOMERULAR FILTRATION RATE > 60 ML/MIN (60-); GLUCOSE 105 mg/dL (74-118); POTASSIUM 3.6 mmol/L (3.5-5.1); SODIUM 137 mmol/L (136-145)
[2018-01-23 06:37] LABS: ALANINE AMINOTRANSFERASE 6 IU/L (0-55); ALBUMIN 2.4 g/dL (3.5-5.0); ALKALINE PHOSPHATASE 56 IU/L (40-150); BILIRUBIN,DIRECT 0.1 mg/dL (0.0-0.5); CHOL/HDL RATIO 3.4 (3.0-3.6); CHOLESTEROL 127 MD/DL (0-199); HDL CHOLESTEROL 37 MG/DL (40-60); LDL CHOLESTEROL 74 MG/DL (60-130); TRIGLYCERIDES 80 MG/DL (0-149)
[2018-01-23 06:58] LABS: FREE T4 (FREE THYROXINE) 1.17 ng/dL (0.9-1.8); THYROID STIMULATING HORMONE 2.176 uIU/mL (0.350-4.940)
[2018-01-23 07:46] VITALS: BP 151/81
[2018-01-23] MEDS: FAMOTIDINE 20 MG TAB PO SCH ×2 (08:38→16:27)
[2018-01-23] MEDS: D5.45%NS/KCL 20MEQ 1,000 ML IV SCH ×2 (08:39→16:27)
[2018-01-23] MEDS: ONDANSETRON HCL INJ 2 MG/ML VIAL IV PRN ×2 (09:46→15:44)
[2018-01-23] MEDS ORDERED: ACETAMINOPHEN 325 MG TAB PO PRN (10:15)
[2018-01-23] MEDS ORDERED: ACETAMINOPHEN 325 MG SUPP PR PRN (10:15)
--- NOTE | 2018-01-23 11:59 | Diagnostic Imaging Report ---
PROCEDURE:X-RAY ABDOMEN - KUB COMPARISON:CT dated 01/18/18 INDICATIONS:DIVERTICULITIS FINDINGS: Limited by body habitus and single view. There is a non-obstructed bowel-gas pattern. No signs of pneumoperitoneum. There are no acute osseous abnormalities. CONCLUSION: Nonobstructive bowel gas pattern. Dictated by: Jose Bernstein M.D. on 01/23/2018 at 11:59 Electronically approved by: Jose Bernstein M.D. on 01/23/2018 at 11:59
[2018-01-23 16:00] VITALS: BP 190/77
[2018-01-23] MEDS: CALCIUM CARBONATE 500 MG CHEWABLE TABS PO SCH (16:27)
[2018-01-23 20:00] VITALS: BP 173/81
[2018-01-24] VITALS: BP 152/65
[2018-01-24] MEDS: METRONIDAZOLE 500MG/NS 100ML 100 ML IV SCH ×4 (00:58→18:49)
[2018-01-24] MEDS: D5.45%NS/KCL 20MEQ 1,000 ML IV SCH ×2 (01:09→08:43)
[2018-01-24] MEDS: CEFTRIAXONE SOD 1 GM VIAL IV SCH ×2 (01:09→12:32)
[2018-01-24] MEDS: HYDROMORPHONE 1MG/1ML INJ IV PRN ×6 (01:45→23:00)
[2018-01-24 04:00] VITALS: BP 145/67
--- NOTE | 2018-01-24 06:33 | Diagnostic Imaging Report ---
ABDOMEN-1VIEW (KUB) Clinical history: Diverticulitis Technique: AP view abdomen Comparison: 01/23/2018 Findings: Cholecystectomy clips. No differentially dilated loops of small or large bowel. Limited supine portable evaluation for free air with exclusion of the hemidiaphragms. Impression: Nonobstructive bowel gas pattern. Signed by: Dr Omaira Leigh MD on 01/24/2018 6:29 AM
[2018-01-24 08:00] VITALS: BP 170/81
[2018-01-24] MEDS: ONDANSETRON HCL INJ 2 MG/ML VIAL IV PRN ×2 (08:00→12:14)
[2018-01-24] MEDS: CALCIUM CARBONATE 500 MG CHEWABLE TABS PO SCH ×2 (08:43→18:49)
[2018-01-24] MEDS: FAMOTIDINE 20 MG TAB PO SCH ×2 (08:43→18:49)
[2018-01-24 09:41] LABS: BASOPHILS % 0.4 % (0.0-1.0); EOSINOPHILS # (AUTO) 0.2 (0.0-0.4); EOSINOPHILS % 1.9 % (0.0-6.0); HEMATOCRIT 30.8 % (34.2-44.1); HEMOGLOBIN 10.2 g/dL (12.0-16.0); LYMPHOCYTES # (AUTO) 1.6 (1.0-3.2); MEAN CORPUSCULAR HEMOGLOBIN 27.6 pg (28-32); MEAN CORPUSCULAR HGB CONC 33.1 g/dL (31-35); MEAN CORPUSCULAR VOLUME 83.5 fL (81-99); MONOCYTES # (AUTO) 0.7 (0.2-0.8); MONOCYTES % 8.1 % (4.4-11.3); NEUTROPHILS # (AUTO) 6.3 (2.1-6.9); NEUTROPHILS % 71.3 % (38.7-80.0); PLATELET COUNT 312 x10e3/uL (140-360); RED BLOOD COUNT 3.69 x10e6/uL (3.6-5.1); RED CELL DISTRIBUTION WIDTH 16.4 % (11.7-14.4)
[2018-01-24 10:01] LABS: ANION GAP 6.4 mmol/L (8-16); BLOOD UREA NITROGEN < 5 mg/dL (7-26); CARBON DIOXIDE 29 mmol/L (22-29); CHLORIDE 105 mmol/L (98-107); CREATININE, SERUM 0.65 mg/dL (0.57-1.11); EST GLOMERULAR FILTRATION RATE > 60 ML/MIN (60-); GLUCOSE 126 mg/dL (74-118); MAGNESIUM 1.4 MG/DL (1.3-2.1); POTASSIUM 3.4 mmol/L (3.5-5.1); SODIUM 137 mmol/L (136-145)
[2018-01-24 10:07] LABS: BUN/CREATININE RATIO 8 (6-25)
[2018-01-24] MEDS: NIFEDIPINE CR 30 MG TAB PO SCH (11:04)
[2018-01-24 12:00] VITALS: BP 168/71
[2018-01-24 16:00] VITALS: BP 160/72
[2018-01-24 20:00] VITALS: BP 154/70
[2018-01-25] VITALS: BP 170/81
[2018-01-25] MEDS: D5.45%NS/KCL 20MEQ 1,000 ML IV SCH
[2018-01-25 04:00] VITALS: BP 142/66
[2018-01-25] MEDS: HYDROMORPHONE 1MG/1ML INJ IV PRN ×2 (05:04→09:48)
[2018-01-25] MEDS: METRONIDAZOLE 500MG/NS 100ML 100 ML IV SCH ×4 (05:46→17:13)
--- NOTE | 2018-01-25 06:54 | Diagnostic Imaging Report ---
ABDOMEN-1VIEW (KUB) Clinical history: Diverticulitis Technique: AP view abdomen Comparison: Previous day Findings: Hemidiaphragms are excluded. Cholecystectomy clips. No differentially dilated loops of small or large bowel. Limited supine portable evaluation for free air with exclusion of the hemidiaphragms. Impression: Nonobstructive bowel gas pattern. Signed by: Dr Omaira Leigh MD on 01/25/2018 6:50 AM
[2018-01-25 08:57] LABS: BASOPHILS # (AUTO) 0.1 (0.0-0.1); BASOPHILS % 0.5 % (0.0-1.0); EOSINOPHILS # (AUTO) 0.2 (0.0-0.4); EOSINOPHILS % 1.9 % (0.0-6.0); HEMATOCRIT 31.4 % (34.2-44.1); HEMOGLOBIN 10.2 g/dL (12.0-16.0); MEAN CORPUSCULAR HEMOGLOBIN 27.3 pg (28-32); MEAN CORPUSCULAR HGB CONC 32.5 g/dL (31-35); MONOCYTES # (AUTO) 0.8 (0.2-0.8); MONOCYTES % 7.7 % (4.4-11.3); NEUTROPHILS # (AUTO) 7.1 (2.1-6.9); NEUTROPHILS % 69.5 % (38.7-80.0); PLATELET COUNT 342 x10e3/uL (140-360); RED BLOOD COUNT 3.74 x10e6/uL (3.6-5.1); RED CELL DISTRIBUTION WIDTH 16.5 % (11.7-14.4)
[2018-01-25] MEDS: FAMOTIDINE 20 MG TAB PO SCH ×2 (09:14→17:13)
[2018-01-25] MEDS: CALCIUM CARBONATE 500 MG CHEWABLE TABS PO SCH ×2 (09:14→17:13)
[2018-01-25] MEDS: NIFEDIPINE CR 30 MG TAB PO SCH (09:14)
[2018-01-25 09:26] LABS: ANION GAP 9.3 mmol/L (8-16); BLOOD UREA NITROGEN < 5 mg/dL (7-26); CALCIUM 8.3 mg/dL (8.4-10.2); CARBON DIOXIDE 30 mmol/L (22-29); CHLORIDE 106 mmol/L (98-107); CREATININE, SERUM 0.61 mg/dL (0.57-1.11); EST GLOMERULAR FILTRATION RATE > 60 ML/MIN (60-); GLUCOSE 100 mg/dL (74-118); POTASSIUM 3.3 mmol/L (3.5-5.1); SODIUM 142 mmol/L (136-145)
[2018-01-25 09:42] LABS: BUN/CREATININE RATIO 8 (6-25)
[2018-01-25] MEDS: ONDANSETRON HCL INJ 2 MG/ML VIAL IV PRN ×2 (09:48→17:14)
[2018-01-25] MEDS ORDERED: TRAMADOL HCL 50 MG TAB PO PRN (10:30)
[2018-01-25] MEDS ORDERED: POTASSIUM CHLORIDE 20 MEQ TAB CR PO SCH (10:34)
[2018-01-25 10:42] VITALS: BP 143/63
[2018-01-25] MEDS ORDERED: LORAZEPAM INJ 2 MG/ML VIAL IV PRN (10:45)
[2018-01-25] MEDS ORDERED: DIPHENHYDRAMINE HCL 25 MG CAP PO PRN (10:45)
[2018-01-25] MEDS: CEFTRIAXONE SOD 1 GM VIAL IV SCH ×2 (12:06)
[2018-01-25 14:29] LABS: MAGNESIUM 1.6 MG/DL (1.3-2.1)
[2018-01-25 15:59] VITALS: BP 130/66
[2018-01-25 20:00] VITALS: BP 142/62
[2018-01-26] VITALS (7 sets, daily range): BP systolic 111–171; BP diastolic 58–86
[2018-01-26] MEDS: CEFTRIAXONE SOD 1 GM VIAL IV SCH ×2 (00:15→11:58)
[2018-01-26] MEDS ORDERED: SODIUM CHLORIDE 0.9% 250ML 250 ML ONE (00:56)
[2018-01-26] MEDS: METRONIDAZOLE 500MG/NS 100ML 100 ML IV SCH ×4 (00:59→17:13)
[2018-01-26] MEDS ORDERED: POTASSIUM CHLORIDE 20 MEQ TAB CR PO STA (01:13)
[2018-01-26] MEDS: HYDROMORPHONE 1MG/1ML INJ IV PRN ×2 (01:15→09:03)
[2018-01-26] MEDS ORDERED: ZOLPIDEM TARTRATE 5 MG TAB PO PRN (01:45)
[2018-01-26 06:26] LABS: BASOPHILS # (AUTO) 0.1 (0.0-0.1); BASOPHILS % 0.5 % (0.0-1.0); EOSINOPHILS # (AUTO) 0.3 (0.0-0.4); EOSINOPHILS % 2.4 % (0.0-6.0); HEMATOCRIT 33.2 % (34.2-44.1); HEMOGLOBIN 10.9 g/dL (12.0-16.0); LYMPHOCYTES # (AUTO) 2.6 (1.0-3.2); LYMPHOCYTES % 24.1 % (18.0-39.1); MEAN CORPUSCULAR HEMOGLOBIN 27.3 pg (28-32); MEAN CORPUSCULAR HGB CONC 32.8 g/dL (31-35); MEAN CORPUSCULAR VOLUME 83.2 fL (81-99); MONOCYTES # (AUTO) 0.8 (0.2-0.8); MONOCYTES % 7.9 % (4.4-11.3); NEUTROPHILS # (AUTO) 6.9 (2.1-6.9); NEUTROPHILS % 64.8 % (38.7-80.0); PLATELET COUNT 353 x10e3/uL (140-360); RED BLOOD COUNT 3.99 x10e6/uL (3.6-5.1); RED CELL DISTRIBUTION WIDTH 16.4 % (11.7-14.4)
--- NOTE | 2018-01-26 06:26 | Diagnostic Imaging Report ---
ABDOMEN-1VIEW (KUB) Clinical history: Diverticulitis Technique: AP view abdomen Comparison: Previous day Findings: Left hemidiaphragm is excluded. Cholecystectomy clips. No differentially dilated loops of small or large bowel. Limited supine portable evaluation for free air. Impression: Nonobstructive bowel gas pattern. Signed by: Dr Omaira Leigh MD on 01/26/2018 6:23 AM
[2018-01-26 07:00] LABS: ANION GAP 10.7 mmol/L (8-16); BLOOD UREA NITROGEN < 5 mg/dL (7-26); CALCIUM 8.5 mg/dL (8.4-10.2); CARBON DIOXIDE 28 mmol/L (22-29); CHLORIDE 104 mmol/L (98-107); CREATININE, SERUM 0.59 mg/dL (0.57-1.11); EST GLOMERULAR FILTRATION RATE > 60 ML/MIN (60-); GLUCOSE 85 mg/dL (74-118); POTASSIUM 3.7 mmol/L (3.5-5.1); SODIUM 139 mmol/L (136-145)
[2018-01-26 07:06] LABS: BUN/CREATININE RATIO 8 (6-25)
[2018-01-26] MEDS: FAMOTIDINE 20 MG TAB PO SCH ×2 (07:30→16:30)
[2018-01-26] MEDS: CALCIUM CARBONATE 500 MG CHEWABLE TABS PO SCH ×2 (08:00→17:00)
[2018-01-26] MEDS: ONDANSETRON HCL INJ 2 MG/ML VIAL IV PRN (08:19)
[2018-01-26] MEDS: NIFEDIPINE CR 30 MG TAB PO SCH (09:00)
[2018-01-26] MEDS: HYDROCODONE/APAP 10MG-325MG TAB PO PRN ×2 (14:35→18:06)
[2018-01-27] MEDS: METRONIDAZOLE 500MG/NS 100ML 100 ML IV SCH ×3 (00:33→12:00)
[2018-01-27] MEDS: CEFTRIAXONE SOD 1 GM VIAL IV SCH ×2 (00:33→12:15)
[2018-01-27] MEDS: HYDROCODONE/APAP 10MG-325MG TAB PO PRN ×3 (00:34→12:44)
[2018-01-27 01:09] VITALS: BP 143/64
[2018-01-27 04:56] VITALS: BP 115/56
[2018-01-27 06:17] LABS: BASOPHILS # (AUTO) 0.1 (0.0-0.1); BASOPHILS % 0.7 % (0.0-1.0); EOSINOPHILS # (AUTO) 0.3 (0.0-0.4); HEMATOCRIT 34.3 % (34.2-44.1); HEMOGLOBIN 11.1 g/dL (12.0-16.0); LYMPHOCYTES # (AUTO) 2.3 (1.0-3.2); LYMPHOCYTES % 30.2 % (18.0-39.1); MEAN CORPUSCULAR HEMOGLOBIN 27.5 pg (28-32); MEAN CORPUSCULAR HGB CONC 32.4 g/dL (31-35); MEAN CORPUSCULAR VOLUME 84.9 fL (81-99); MONOCYTES # (AUTO) 0.7 (0.2-0.8); MONOCYTES % 9.7 % (4.4-11.3); NEUTROPHILS # (AUTO) 4.2 (2.1-6.9); NEUTROPHILS % 55.1 % (38.7-80.0); PLATELET COUNT 363 x10e3/uL (140-360); RED BLOOD COUNT 4.04 x10e6/uL (3.6-5.1); RED CELL DISTRIBUTION WIDTH 16.8 % (11.7-14.4)
[2018-01-27 06:37] LABS: ANION GAP 11.6 mmol/L (8-16); BLOOD UREA NITROGEN 5 mg/dL (7-26); BUN/CREATININE RATIO 8 (6-25); CALCIUM 8.5 mg/dL (8.4-10.2); CARBON DIOXIDE 29 mmol/L (22-29); CHLORIDE 103 mmol/L (98-107); CREATININE, SERUM 0.62 mg/dL (0.57-1.11); EST GLOMERULAR FILTRATION RATE > 60 ML/MIN (60-); GLUCOSE 90 mg/dL (74-118); POTASSIUM 3.6 mmol/L (3.5-5.1); SODIUM 140 mmol/L (136-145)
[2018-01-27] MEDS: FAMOTIDINE 20 MG TAB PO SCH (07:30)
[2018-01-27 08:00] VITALS: BP 145/80
[2018-01-27] MEDS: CALCIUM CARBONATE 500 MG CHEWABLE TABS PO SCH (08:00)
[2018-01-27] MEDS: NIFEDIPINE CR 30 MG TAB PO SCH (08:41)
[2018-01-27] MEDS ORDERED: METRONIDAZOLE500 MG PO (11:23)
[2018-01-27] MEDS ORDERED: TYLENOL WITH C1 EACH PO (11:23)
[2018-01-27] MEDS ORDERED: CEFTIN PO (11:23)
[2018-01-27] MEDS ORDERED: LORAZEPAM0.5 MG PO (11:23)
[2018-01-27] MEDS ORDERED: ONDANSETRON ODT8 MG PO (11:23)
[2018-01-27] MEDS ORDERED: NIFEDIPINE ER30 M1 PO (11:24)
--- NOTE | 2018-01-28 17:30 | Discharge Summary ---
ADMISSION DIAGNOSIS: Acute sigmoid diverticulitis. DISCHARGE DIAGNOSIS 1. Acute sigmoid diverticulitis. 2. Gastrointestinal bleed, ruled out Clostridium difficile. 3. Hypokalemia. 4. Hypocalcemia. HISTORY: Patient has no medical history. She does have a surgical history of cholecystectomy and hysterectomy. HOSPITAL COURSE: A 63-year-old female who complains of abdominal pain that has been going on for about 6 months in the left lower quadrant initially. She also complains of diarrhea and bright red blood per rectum in the last couple of days. The pain was finally severe enough that the patient went to the ER about a week ago. Here the CAT scan showed acute sigmoid diverticulitis and a ventral hernia. She was started on Cipro and Flagyl, which she had been taking for about a week. According to the patient, the pain did not stop and the pain moved to the right side as well. So, on admission the patient was started on Flagyl and Rocephin. She was started on clear liquids. KUB on admission showed nonobstructive bowel gas pattern. Day before discharge, KUB showed nonobstructing bowel gas pattern. Patient's pain was controlled. Diarrhea slowed down in frequency and became less watery. Patient is able to tolerate diet and taking p.o. medications for the pain. Her C. diff was negative. At time of discharge, her WBC was 7.56, hemoglobin of 11.1, hematocrit of 34.3. Sodium 140, potassium 3.6, creatinine of 0.62, GFR of over 60. Patient has AN ALLERGY TO DIAZEPAM but seems to be very anxious. She said that she wants to try an anxiety medicine, and after attempting lorazepam, she did not have a reaction to it; so, she was sent home with lorazepam, Tylenol with Codeine, Flagyl, nifedipine, Zofran and Ceftin. She will follow up with primary care and GI in 1 to 2 weeks. Dictated by: Debi Eric NP MOHSEN BEAN MD Job#: [id number]
== END 2018-01-27 12:45 | disposition home or self-care (01) | DRG 392 ==
LOC: ER 22:18 → MED/SURG2 01-22 00:44
PROVIDERS: ADMIT Internal Medicine; ATTEND Internal Medicine
DX: K57.32 Diverticulitis of large intestine without perforation or abscess without bleeding (principal); E83.51 Hypocalcemia; E87.6 Hypokalemia; K43.9 Ventral hernia without obstruction or gangrene; R19.7 Diarrhea, unspecified; I10 Essential (primary) hypertension; F41.9 Anxiety disorder, unspecified
CPT/HCPCS: 36415; 74018; 80048; 80061; 80076; 82270; 83735; 84439; 84443; 85025; 87493; 99284; J0360; J0500; J0696; J1170; J2060; J2405; J2550; J7030; J7050